=== PATIENT | female | born 1955 | race Caucasian/White ===

== ENCOUNTER → 2017-05-31 | Outpatient (CLI) | payer OTHER ==
[~2017-05-31] VITALS: Ht 165.1 cm; Wt 63.5 kg
[~2017-05-31] MED LIST: CYMBALTA60 MG PO; ELIQUIS5 MG PO; HYDROCODON-ACE1 EAC7 PO; IRBESARTAN300 MG PO; MELATONIN1 MG PO; NEURONTIN600 MG PO; PROBIOTIC1 EAC1 PO; TRAMADOL-ACETA1 EACH PO; TYLENOL PM EX-1 EACH PO
[2017-05-31 16:33] LABS: ABSOLUTE EOSINOPHILS 0.1 thou/uL (0.0-0.7); ABSOLUTE LYMPHOCYTES 1.6 thou/uL (0.8-5.3); ABSOLUTE MONOCYTES 0.5 thou/uL (0.0-1.2); ABSOLUTE NEUTROPHILS 4.5 thou/uL (1.6-8.1); BASOPHILS 0.6 %; EOSINOPHILS 1.8 %; LYMPHOCYTES 23.7 %; MCH 30.3 pg (26.0-34.0); MCHC 33.3 g/dL (28.0-37.0); MCV 90.9 fL (80.0-100.0); MONOCYTES 7.7 %; MPV 7.5 fl. (7.2-11.1); NUCLEATED RBCS 0 /100WBC; PLATELET COUNT* 339 thou/uL (150-400); POLYS 66.2 %; RBC 3.96 mil/uL (4.20-5.00); RDW-CV 13.5 % (10.5-14.5); WBC 6.7 thou/uL (4.0-11.0)
--- NOTE | 2017-05-31 16:38 | EKG ---
[place] [address] ELECTROCARDIOGRAM REPORT Name: CINDY IRENE Room: PRE IN [facility].#: [id number] Admission: Attend Phys: Josh Myrick Discharge: Date of : 53 Report #: [id number] THIS REPORT FOR: //name// [facility] Test Date: 2017-05-31 Test Time: 16:02:08 Pat Name: CINDY IRENE Department: Room: Gender: F Corporate Account Executive: 26 : 1955 Requested By: Jewel Xiong Order Number: [id number] Reading MD: Jewel Tesfaye Measurements Intervals Shasta Rate: 72 P: 58 SC: 160 QRS: 19 QRSD: 91 T: 50 QT: 407 QTc: 446 Interpretive Statements Sinus rhythm RSR' in V1 or V2, probably normal variant No previous ECG available for comparison Electronically Signed On 05-31-2017 16:38:07 PAPER CLEANER by Jewel Tesfaye [email or web address] <ELECTRONICALLY SIGNED> By: Jewel Tesfaye MD, [facility] 05/31/17 1638 1602 1602 Jewel Tesfaye MD, FACC /EPI
[2017-05-31 16:40] LABS: APTT 30.3 Seconds (25.0-31.3); PROTIME 9.9 Seconds (9.20-11.50)
[2017-05-31 16:46] LABS: ALBUMIN 3.3 g/dL (3.4-5.0); CALCIUM 8.8 mg/dL (8.5-10.1); CREATININE 0.6 mg/dL (0.6-1.3); POTASSIUM 3.9 mmol/L (3.5-5.1); TOTAL BILIRUBIN 0.2 mg/dL (<0.1-1.0); TOTAL PROTEIN 6.8 g/dL (6.4-8.2)
[2017-05-31 17:43] LABS: ESR (SEDRATE) 20 mm/hr (0-30)
[2017-05-31 17:54] LABS: URINE BILIRUBIN NEGATIVE (Negative); URINE BLOOD TRACE (Negative); URINE CLARITY CLEAR; URINE COLOR YELLOW; URINE GLUCOSE-RANDOM NEGATIVE (Negative); URINE KETONES NEGATIVE (Negative); URINE LEUKOCYTES-REFLEX NEGATIVE (Negative); URINE NITRITE-REFLEX NEGATIVE (Negative); URINE PROTEIN NEGATIVE (Negative); URINE SPECIFIC GRAVITY <= 1.005 (1.005-1.030); URINE UROBILINOGEN 0.2 E.U./dl (0.2-1.0)
[2017-06-01 15:07] LABS: GLYCOHEMOGLOBIN (HGB A1C) 5.4 % (4.8-5.6)
--- NOTE | 2017-06-14 08:53 | S ---
[address] [address] SURGICAL PATH RPT PROCEDURE Name: CINDY IRENE Room: [facility].#: [id number] Admission: 05/31/17 Date of : 53 Discharge: Report #: [id number] Path Case #: [id number] PATHOLOGY REPORT COLLECTION DATE: 06/08/2017 RECEIVED DATE: 06/11/2017 SUBMITTING PHYS: Dr. Jewel Xiong OTHER PHYS: Dr. Jeff Gaffney SPECIMEN(S) RECEIVED: A.Left hip bone and tissue * * * * * * * * * * * * FINAL DIAGNOSIS: Left hip bone and tissue: - Moderate nonspecific chronic synovitis, benign dense fibrous connective tissue and benign femoral head with prominent osteonecrosis (avascular necrosis) and severe degenerative changes. (CYNDEE:[facility]; 06/12/2017) PATHOLOGIST: Colby Barney M.D. REPORT ELECTRONICALLY SIGNED BY: Colby Barney M.D. DATE/TIME: 06/13/2017 09:56 * * * * * * * * * * * * GROSS PATHOLOGY: Received in formalin labeled "Cindy Irene, left hip bone and tissue," is a femoral head measuring 5.3 x 4.8 x 4.4 cm in greatest dimensions. The articular surface is borges-brown with areas of eburnation. Sectioning the bone reveals yellow cut surfaces. Also received are multiple segments of soft tissue measuring 5.7 x 5.3 x 2.0 cm in aggregate dimensions. Assignment Desk Assistant tissue is submitted in cassette A1, following decalcification. (SDY; 06/11/2017) CLINICAL HISTORY: Left hip degenerative joint disease INITIAL CPT CODE(S): A; 57549, 33828 Professional services performed [place] [facility] [place] [address] Technical services performed by [facility] at [address] [place] [address], [facility] [address] [address]. [place] [address] SURGICAL PATH RPT PROCEDURE Name: CINDY IRENE [facility] [id number] Admission: 05/31/17 Date of : 53 Discharge: Report #: [id number] Path Case #: [id number] [facility] [address] [place] [address] PHONE: [phone] DIRECTOR: Jose J Will M.D. * * * END OF REPORT * * *
== END ==
LOC: M.LAB 08:00 → M.PRE 06-08 06:43 → EDSTATUS 06-08 08:44 → M.PRE 06-08 10:36
PROVIDERS: Orthopaedic Surgery
DX: M16.12 Unilateral primary osteoarthritis, left hip (principal)

== ENCOUNTER 2017-06-08 11:36 | Inpatient (IN) | payer OTHER ==
[~2017-06-08] VITALS: Ht 165.1 cm; Wt 56.7 kg
[~2017-06-08 11:36] MED LIST changes: -ELIQUIS5 MG PO; -HYDROCODON-ACE1 EAC7 PO
[2017-06-08 12:45] VITALS: BP 127/78
[2017-06-08 20:20] VITALS: BP 121/76
[2017-06-08 23:48] VITALS: BP 131/80
[2017-06-09 03:48] VITALS: BP 134/84
[2017-06-09 04:03] LABS: HEMATOCRIT 36.4 % (37.0-47.0); HEMOGLOBIN 11.9 gm/dL (12.0-15.0)
--- NOTE | 2017-06-09 08:13 | NUR ---
PATIENT ARRIVED TO UNIT AT 1930 FROM THE PACU. ALERT AND ORIENTED, DROWSY. VITALS STABLE. ON 2L OF OXYGEN. CAPNO IN PLACE. LEFT HIP DRESSING C/D/I. ICEPACK IN PLACE. EDUCATED ABOUT FALL PREVENTION. ALERT AND ORIENTED TO STAFF AND ROOM. FLUIDS INFUSING PER ORDER. PAIN CONTROLLED WITH PO MEDICATION. HOURLY ROUNDS. BED ALARM IN USE. NURSING WILL CONTINUE TO MONITOR.
[2017-06-09 08:20] VITALS: BP 154/88
[2017-06-09] MEDS ORDERED: HYDROCODON-ACE1 EAC7 PO (10:33)
[2017-06-09] MEDS ORDERED: ELIQUIS5 MG PO (10:33)
[2017-06-09 14:08] VITALS: BP 154/88
[2017-06-09 14:18] VITALS: BP 154/88
[2017-06-09 16:00] VITALS: BP 154/88
[2017-06-09 16:33] VITALS: BP 154/88
--- NOTE | 2017-06-09 16:34 | NUR ---
PATIENT ALERT AND ORIENTED THROUGHOUT SHIFT. VITAL SIGNS STABLE ON ROOM AIR. WORKED WITH THERAPY TWICE BEFORE DISCHARGE. FALL PRECAUTIONS MAINTAINED THROUGHOUT DAY. PAIN WAS MAINTAINED WITH PO PAIN MEDICATION. IV WAS DISCONTINUED BEFORE DISCHARGE. PATIENT LEFT UNIT AT 1600 WITH SPOUSE. ALL BELONGINGS WITH PATIENT.
--- NOTE | 2017-06-09 17:48 | NUR ---
PT.DISCHARGED EARLIER WITH HOME HEALTH. FOUND HOME HEALTH THAT TAKES PTS INSURANCE AND GOES TO [facility]. PT.HAD DECIDED SHE WANTED HH INSTEAD OF OUTPT.THERAPY ORIGINALLY PLANNED. DISCUSSED EARLIER WITH PT.AND . SHE WAS AGREEABLE. SPOKE WITH ARIANNE/KESHA AND FAXED ORDERS TO HER FOR P.T.HH,OP REPORT AND H&P. ATTEMPTED SEVERAL TIMES TO CALL IN PRESCRIPTION FOR ELIQUIS TO [facility] IN [place]. LEFT ON AUTOMATED SYSTEM. GAS EXAMINER SAID THEY DID NOT GET IT. ON HOLD FOR OVER 15 MIN. FOR PHARMACIST. CALLED BACK AND IMMEDIATELY PUT ON HOLD AGAIN. INFORMED PT. SHE SAID SHE DID NOT CARE WHAT COPAY IS. THERAPY DISPENSED A WALKER TO PT.WITH ORDER.
--- NOTE | 2017-06-11 12:09 | NUR ---
CALLED FROM [place]. SHE SAID WITH PT.'S PARTICULAR INSURANCE PLAN,SHE WOULD BE RESPONSIBLE FOR 15% OF EACH HH VISIT UNTIL HER DEDUCTIBLE OF $2000 IS MET. A PT VIIST COSTS $165. JAMIN CALLED AND SPOKE WITH HER ,BLAKE. HE SAID SHE WAS REALLY DOING WELL, GETTING UP BY HERSELF AND WALKING WELL WITH HER WALKER. HE SAID HE THINKS THEY WILL DECLINE HH AT THIS TIME AND PROBABLY DO OUTPT., OR MAYBE NOTHING UNTIL THEY SEE THE DR. JAMIN NOTIFIED [place] OF ABOVE.
--- NOTE | 2017-07-20 16:14 | OP ---
[address] [address] OPERATIVE REPORT Name: TETOCINDY Room: [address] M.R.#: [id number] Admission: 06/08/17 Attend Phys: Josh Bowers Discharge: 06/09/17 Date of : 53 Report #: [id number] THIS REPORT FOR: //name// CC: RAÚL Xiong Physician staff Jeff Gaffney DICTATED BY: Ant Lang DO DATE OF SERVICE: 06/08/2017 PREOPERATIVE DIAGNOSIS: Advanced degenerative joint disease, left hip. POSTOPERATIVE DIAGNOSIS: Advanced degenerative joint disease, left hip. PROCEDURE PERFORMED: Left total hip arthroplasty with anterior approach. SURGEON: Jewel Xiong DO FRAUD EXAMINER: Ant Lang DO SECOND GRUBBER: Karl Copeland DO IMPLANTS: Biomet G7 total hip arthroplasty system with the following components: 1. A 58 mm G7 acetabular shell with two 6.5 mm screws measuring 30 mm. 2. A 36 mm high wall E1 polyethylene liner. 3. A 12 mm high offset Taperloc Microplasty femoral stem. 4. A 36 mm ceramic head with a -3 taper neck adaptor. ESTIMATED BLOOD LOSS: 400 mL. ANTIBIOTICS: Ancef 1 g IV preoperatively. INDICATIONS FOR PROCEDURE: The patient is a very pleasant 62-year-old female who was seen in clinic for quite some time. She has had a longstanding left hip pain. She has undergone extensive conservative care with minimal improvement in her symptoms. She has tried therapy, oral anti-inflammatories, intra-articular steroid injections as well as lifestyle modifications. Despite this, she continues to have life-altering pain. For this reason, we recommended a left total hip arthroplasty. DESCRIPTION OF PROCEDURE: The patient was seen in the preoperative area where the risks, benefits and alternatives of the procedure were discussed. The risks include but are not limited to bleeding, infection, neurovascular injury, [place] [address] OPERATIVE REPORT Name: CINDY IRENE Room: [address]#: [id number] Admission: 06/08/17 Attend Phys: Josh Bowers Discharge: 06/09/17 Date of : 53 Report #: [id number] fracture, need for further surgery, continued pain, blood loss, blood transfusions, reaction failure prosthesis, leg length discrepancy, dislocations, allergies to prosthesis, stiffness, DVT and inherent risks associated with anesthesia. She understood all these and wished to proceed. Written consent was obtained. She was then brought back to the operative suite and placed supine on a well-padded Lebo table. General anesthesia was induced. Both legs were placed on the Lebo traction table with all extremities well padded and supported. The left hip was prepped and draped in the normal sterile fashion. A surgical timeout was performed where again the correct side, site and procedure were verified. Everyone present was in agreement. An 8 cm incision was made over the left hip with a 10 blade scalpel. This was carried down through the subcutaneous tissue. A new knife blade was then used to make an incision over the tensor fascia baldomero fascia. The interval between the sartorius and tensor fascia baldomero was developed and retractors were placed. This exposed the circumflex vessels which were identified and ligated with Aquamantys. Retractors were placed exposing the anterior hip capsule. Aquamantys was used to treat the capsule and anterior capsulotomy was performed with electrocautery. Retractors were placed within the capsule. A femoral cut was made with an oscillating saw in the usual fashion. The head was removed. The soft tissue around the acetabulum was cleared and the wound was thoroughly irrigated with normal saline. Sequential reaming was performed under fluoroscopic guidance and the acetabulum was reamed to a 49 mm diameter. The acetabulum was thoroughly irrigated once again. The final acetabular shell was impacted into place under fluoroscopy. Two screws were drilled, measured and filled in the usual fashion to the posterior superior quadrant of the acetabulum. X-rays confirmed adequate position of the cup and screws. Final acetabular liner was impacted into place. Attention was then turned to the proximal femur, which was exposed with a sequential external rotation, extension and adduction. A box osteotome was used to remove cancellous bone. The proximal metaphyseal region and a rat-tail rasp was used to identify the femoral canal. Sequential broaching was then performed. The femur was broached to a size 12. This felt stable. A trial was then performed with a standard offset and a -3 neck. Reduction was performed easily. X-rays were obtained and showed a well fitting stem. However, she was felt to be somewhat unstable. We then retrialed with a lateral offset and a -3 neck. At this time, she was felt to be quite stable and x-rays showed a good length as well as good fit of the femoral stem. The head and neck and trial were removed and the broach was removed. The final 12 mm broach was advanced down the canal. The wound was thoroughly irrigated with normal saline. The remaining final components were impacted into place. The hip was reduced and final x-rays were obtained. The wound was then thoroughly irrigated with normal saline. Ortho cocktail was administered in the soft tissues. The deep fascia was closed with 0 Vicryl in a running fashion. The superficial wound was thoroughly irrigated. The subcutaneous tissue was closed with a 2-0 Vicryl in simple interrupted inverted fashion followed by a running 3-0 Stratafix in the skin and reinforced with skin glue. Sterile dressings were applied including Mepilex. A medium Hemovac drain was placed prior to closure. Needle, [place] [address] OPERATIVE REPORT Name: CINDY IRENE Room: [address]#: [id number] Admission: 06/08/17 Attend Phys: Josh Bowers Discharge: 06/09/17 Date of : 53 Report #: [id number] counts were correct x 2. The patient was awoken from anesthesia and transferred to PACU in stable condition. There were no obvious complications. Dr. Xiong was present for all critical aspects of the surgery. <ELECTRONICALLY SIGNED> By: Jewel Xiong DO 07/20/17 1614 1915 Mohinder Xiong DO /nt
== END 2017-06-09 16:00 | disposition home health service (06) | DRG 470 ==
LOC: M.TBA 11:36 → M.PRE 13:21 → M.ORTHSURG 19:30
PROVIDERS: Orthopaedic Surgery; ADMIT Internal Medicine
PROC: 0SRB01A Replacement of Left Hip Joint with Metal Synthetic Substitute, Uncemented, Open Approach (ICD-10-PCS; principal; 2017-06-08)
DX: M16.12 Unilateral primary osteoarthritis, left hip (principal); I10 Essential (primary) hypertension; F32.9 Major depressive disorder, single episode, unspecified; F41.9 Anxiety disorder, unspecified; F17.210 Nicotine dependence, cigarettes, uncomplicated; Z79.899 Other long term (current) drug therapy; Z80.8 Family history of malignant neoplasm of other organs or systems